=== PATIENT | male | born 1990 | race Caucasian/White ===

== ENCOUNTER 2019-05-19 16:54 | Emergency (ER) | payer OTHER ==
[~2019-05-19] VITALS: Ht 157.5 cm; Wt 65.0 kg
[2019-05-19] MEDS ORDERED: HYDROCODONE/ACETAMINOPHEN 5/325MG TABLET PO ONE (17:45)
[2019-05-19] MEDS ORDERED: IBUPROFEN 600MG TABLET PO ONE (17:45)
[2019-05-19 18:39] VITALS: BP 130/70
== END 2019-05-19 22:20 | disposition home or self-care (01) ==
LOC: ER 16:54
DX: S00.11XA Contusion of right eyelid and periocular area, initial encounter (principal); S60.221A Contusion of right hand, initial encounter; S00.01XA Abrasion of scalp, initial encounter; S00.411A Abrasion of right ear, initial encounter; Y00.XXXA Assault by blunt object, initial encounter; Y93.89 Activity, other specified; Y92.89 Other specified places as the place of occurrence of the external cause; Y99.8 Other external cause status
CPT/HCPCS: 70480; 73130; 99284